=== PATIENT | male | born 1990 | race Hispanic/Latino ===

== ENCOUNTER 2020-12-14 23:47 | Emergency (ER) | payer SELFPAY ==
[~2020-12-14] VITALS: Ht 185.4 cm; Wt 132.0 kg
[2020-12-15 00:05] VITALS: BP 139/84
[2020-12-15] MEDS ORDERED: 0.9%NACL 1000ML 500 ML IV ONE (01:00)
[2020-12-15] MEDS ORDERED: CLINDAMYCIN IVPB 900MG/50ML 50 ML IV SCH (01:00)
[2020-12-15] MEDS ORDERED: HYDROCODONE/ACETAMINOPHEN 10/325 MG TAB PO ONE (01:00)
[2020-12-15 01:09] LABS: HEMATOCRIT 44.8 % (42-54); LYMPHOCYTES % (AUTO) 28.5 % (21.0-51.0); MEAN CORPUSCULAR HEMOGLOBIN 27.7 pg (27.0-33.0); MEAN CORPUSCULAR VOLUME 83.9 fL (79-99); MONOCYTES % (AUTO) 6.5 % (3.0-13.0); NEUTROPHILS % (AUTO) 58.6 % (40.0-77.0); PLATELET COUNT (AUTO) 193 K/uL (130-400); RED BLOOD CELL COUNT(AUTO) 5.34 MIL/uL (4.50-6.20); RED CELL DISTRIBUTION WIDTH 13.1 % (11.0-15.5); WHITE BLOOD COUNT (AUTO) 10.5 K/uL (4.8-10.8)
[2020-12-15 01:18] LABS: POTASSIUM 3.8 mmol/L (3.5-5.1)
[2020-12-15] MEDS ORDERED: CLIN-116 PO (02:58)
[2020-12-15] MEDS ORDERED: ACID1TAB3 PO (02:58)
[2020-12-15] MEDS ORDERED: METF-445 PO (03:07)
[2020-12-15 03:10] VITALS: BP 134/81
== END 2020-12-15 03:22 | disposition home or self-care (01) ==
LOC: EDH 23:47
DX: K02.7 Dental root caries (principal); K04.7 Periapical abscess without sinus; E11.9 Type 2 diabetes mellitus without complications
CPT/HCPCS: 36415; 80048; 85025; 87040 ×2; 96365; 99284; J3490; J7030